=== PATIENT | female | born 1990 | race African-American/Black ===

== ENCOUNTER 2019-05-28 18:43 | Inpatient (IN) | payer OTHER ==
[2019-05-28] MEDS ORDERED: ELECTROLYTE-148 SOLN 500 ML IV ONE ×2 (19:00→19:30)
[2019-05-28 19:50] LABS: BASO % 0.4 % (0-2.0); EOS % 0.6 % (0-4.5); HEMATOCRIT 33.2 % (32.4-45.2); HEMOGLOBIN 10.7 GM/dL (10.7-15.3); LYMPH % 17.1 % (8-40); MCHC 32.3 g/dl (32.0-36.0); MEAN CELL VOLUME 86.9 fl (80-96); MEAN PLT VOLUME 9.7 fl (7.5-11.1); MONO % 10.7 % (3.8-10.2); NEUT % 71.2 % (42.8-82.8); PLATELET COUNT 287 K/MM3 (134-434); RBC 3.82 M/mm3 (3.60-5.2); RDW 14.4 % (11.6-15.6); WHITE BLOOD COUNT 8.2 K/mm3 (4.0-10.0)
[2019-05-28 20:07] LABS: INR 0.89 (0.83-1.09); PROTHROMBIN TIME (PATIENT) 10.5 SEC (9.7-13.0)
[2019-05-28 20:10] LABS: ACTIVATED PTT 31.7 SECONDS (25.2-36.5)
[2019-05-28] MEDS ORDERED: SODIUM CHLORIDE 0.9% P/F 10 ML VIAL IJ ONE (20:17)
[2019-05-28] MEDS ORDERED: BUPIVACAINE HCL/PF 2.5 MG/ML - 30 ML VIAL IJ ONE (20:18)
[2019-05-28 20:20] LABS: ANION GAP 6 MMOL/L (8-16); BLOOD UREA NITROGEN 9.7 mg/dL (7-18); CALCIUM 8.3 mg/dL (8.5-10.1); CHLORIDE 105 mmol/L (98-107); CO2 22 mmol/L (21-32); CREATININE 0.6 mg/dL (0.55-1.3); GLUCOSE,RANDOM 79 mg/dL (74-106); SODIUM 134 mmol/L (136-145)
--- NOTE | 2019-05-28 20:26 | HP ---
Past Medical History - Primary Care Physician PCP:: Dov Patel - Admission Chief Complaint: 39 weeks, labor History of Present Illness: 29 yo f 39 weeks, labor, cx 4cm 80 vx -2,mi, fhr cat 1, regular contraction, PNC at [facility] , no complication History Source: Patient Limitations to Obtaining History: No Limitations - Past Medical History ...: 2 ...Para: 1 Heme/Onc: Yes: Anemia - Past Surgical History Hx Myomectomy: No Hx Transabdominal Cerclage: No - Alcohol/Substance Use Hx Alcohol Use: No History of Substance Use: reports: None - Social History History of Recent Travel: No Home Medications - Allergies Allergies/Adverse Reactions: Allergies Allergy/AdvReac Type Severity Reaction Status Date / Time shellfish derived Allergy Severe Verified 05/28/19 19:50 - Home Medications Home Medications: Ambulatory Orders Pnv,Calcium 72/Iron/Folic Acid [ Vitamin Plus Low Iron] 1 tab PO DAILY 05/28/19 Review of Systems - Review of Systems Constitutional: reports: No Symptoms Eyes: reports: No Symptoms HENT: reports: No Symptoms Neck: reports: No Symptoms Respiratory: reports: No Symptoms Gastrointestinal: reports: No Symptoms Genitourinary: reports: No Symptoms Breasts: reports: No Symptoms Reported Musculoskeletal: reports: No Symptoms Integumentary: reports: No Symptoms Neurological: reports: No Symptoms Endocrine: reports: No Symptoms Hematology/Lymphatic: reports: No Symptoms Psychiatric: reports: No Symptoms Physical Exam - Maternity Constitutional: Yes: Well Nourished, No Distress, Calm Eyes: Yes: WNL, Conjunctiva Clear, EOM Intact HENT: Yes: WNL, Atraumatic, Normocephalic Neck: Yes: WNL, Supple, Trachea Midline Cardiovascular: Yes: WNL, Regular Rate and Rhythm Breast(s): Yes: WNL - Abdominal Exam/OB Fundal Height: 38 Number of Fetuses: Single Presentation: Vertex Contractions: Yes Regularity: Regular Intensity: Mod/Strong Monitor Mode: External Heart Rate Location: [facility] Category: I Accelerations: Non-Uniform Decelerations: None - Vaginal Exam/OB Vaginal Bleediing: No Dilatation (cm): 4 Effacement (%): 80 Amniotic Membrane Status: Intact Presentation: Vertex/Position Station: -2 - Physical Exam Musculoskeletal: Yes: WNL Extremities: Yes: WNL Edema: LLE: Trace, RLE: Trace Deep Tendon Reflex Grade: Normal +2 ...Motor Strength: WNL - Labs Lab Results: CBC, BMP 05/28/19 19:30 05/28/19 19:30 Hemorrhage Risk Assessment - Risk Factors Medium Risk Factors: Yes: None High Risk Factors: Yes: None Risk Score: 1 Risk Level: Medium Risk Problem List - Problems (1) with 39 completed weeks gestation Code(s): Z3A.39 - 39 WEEKS GESTATION OF (2) Labor established Code(s): [id number] - Assessment/Plan admit, fhm pain management anticipate vaginal delivery
--- NOTE | 2019-05-28 20:42 | PN ---
Progress Note, Labor Vaginal Exam #1 Labor Exam Date: 05/28/19 Labor Exam Time: 20:30 Heart Rate (range): 140 Dilatation: 8 Effacement (%): 90 Amniotic Membrane Status: Bulging Presentation: Vertex/Position Station: -1 (AROM. Clear AF. Pt. is restless; unable to get the regional anesthesia. Strong ctx.)
[2019-05-28] MEDS ORDERED: OXYTOCIN 20 UNITS in 0.9% NS 20 UNIT/1,000 ML INFUS.BAG IV ONE (20:48)
[2019-05-28] MEDS ORDERED: LIDOCAINE HCL 1% PRESERVATIVE FREE - 30ML VIAL ONE (20:49)
--- NOTE | 2019-05-28 21:51 | CONSULT ---
Past Medical History, Laborist - Admission Chief Complaint: Labor. R/O malpresentation. History of Present Illness: Admitted in active labor. , EDC 12.28.19. 39 wks 4 d. 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 Cardio/Vascular: Denies/None Pulmonary: Denies/None Gastrointestinal: Denies/None Hepatobiliary: Denies/None Renal/: Denies/None Reproductive: Denies/None ...: 2 ...Para: 1 ...EDC by Dates: 05/31/19 Heme/Onc: Denies/None Infectious Disease: Denies/None Psych: Denies/None Musculoskeletal: Denies/None Rheumatology: Denies/None ENT: Denies/None Endocrine: Denies/None Dermatology: Denies/None - Past Surgical History Past Surgical History: Yes: None - Alcohol/Substance Use Hx Alcohol Use: No History of Substance Use: reports: None - Social History Usual Living Arrangement: With Significant Other History of Recent Travel: No Review of Systems - Review of Systems Constitutional: reports: No Symptoms Eyes: reports: No Symptoms HENT: reports: No Symptoms Neck: reports: No Symptoms Cardiovascular: reports: No Symptoms Respiratory: reports: No Symptoms Gastrointestinal: reports: No Symptoms, Abdominal Pain Genitourinary: reports: No Symptoms Breasts: reports: No Symptoms Reported Musculoskeletal: reports: No Symptoms, Muscle Weakness Integumentary: reports: No Symptoms Neurological: reports: No Symptoms Endocrine: reports: No Symptoms Hematology/Lymphatic: reports: No Symptoms Psychiatric: reports: No Symptoms Pain Intensity: 8 Physical Exam - Maternity Vital Signs: Vital Signs Temperature 98.6 F 05/28/19 20:00 Pulse Rate 73 05/28/19 20:00 Respiratory Rate 18 05/28/19 20:00 Blood Pressure 128/81 05/28/19 20:00 O2 Sat by Pulse Oximetry (%) Constitutional: Yes: Well Nourished, No Distress, Calm Eyes: Yes: WNL, Conjunctiva Clear, EOM Intact HENT: Yes: WNL, Atraumatic, Normocephalic Neck: Yes: WNL, Supple, Trachea Midline Cardiovascular: Yes: WNL, Regular Rate and Rhythm Breast(s): Yes: WNL - Abdominal Exam/OB Fundal Height: 40 Number of Fetuses: Single Presentation: Vertex Contractions: Yes Regularity: Regular Intensity: Strong Monitor Mode: External Heart Rate Location: [facility] Category: I Accelerations: Uniform Decelerations: None - Vaginal Exam/OB Vaginal Bleediing: No Speculum Exam: No Dilatation (cm): 7-8 Effacement (%): 90 Amniotic Membrane Status: Intact Presentation: Vertex/Position Station: -1 - Physical Exam Musculoskeletal: Yes: WNL Extremities: Yes: WNL Integumentary: Yes: WNL ...Motor Strength: WNL Psychiatric: Yes: WNL - Labs Lab Results: CBC, BMP 05/28/19 19:30 05/28/19 19:30 Problem List - Problems (1) Exceptionally large baby Code(s): P08.0 - EXCEPTIONALLY LARGE BABY (2) Labor established Code(s): [id number] - (3) with 39 completed weeks gestation Code(s): Z3A.39 - 39 WEEKS GESTATION OF Assessment/Plan At term, in labor Multip. Suspected macrosomia - doubt CPD. EFW: 8 1/2 lbs, poss 9 lbs. Expecting NVD, low/moderate risk for shoulder dystocia. Allow labor to continue Regional anesthesia, AROM will help. All discussed.
--- NOTE | 2019-05-28 22:00 | PN ---
Progress Note, Labor Vaginal Exam #2 Labor Exam Date: 05/28/19 Labor Exam Time: 21:05 Heart Rate (range): 142 Dilatation: 10 Effacement (%): 100 Amniotic Membrane Status: Ruptured Presentation: Vertex/Position Station: 0 (Pushing. Not in control. Will work with her.)
--- NOTE | 2019-05-28 22:05 | PN ---
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 - 1 Minute Total Score: 9 5 Minutes Total Score: 9 Remarks - Remarks Remarks: NVSD, no complications. Delayed cord clamping; divided by FOB. Placenta intact. No tears.
[2019-05-28] MEDS ORDERED: BISACODYL 10 MG SUPP.RECT RC PRN (22:08)
[2019-05-28] MEDS ORDERED: BENZOCAINE 28 GM HEMORRHOIDAL OINTMENT TP PRN (22:08)
[2019-05-28] MEDS ORDERED: WITCH HAZEL 50% (TUCKS) 40 PAD/JAR PAD TP PRN (22:08)
[2019-05-28] MEDS ORDERED: BENZOCAINE 20% 57 GM BOTTLE TP PRN (22:08)
[2019-05-28] MEDS ORDERED: METHYLERGONOVINE MALEATE 0.2 MG/1 ML AMP IM PRN (22:08)
[2019-05-28] MEDS ORDERED: OXYTOCIN 20 UNITS in 0.9% NS 20 UNIT/1,000 ML INFUS.BAG IV SCH (22:30)
[2019-05-28] MEDS ORDERED: IBUPROFEN 600 MG TABLET (FP) PO ONE (22:59)
[2019-05-28] MEDS: IBUPROFEN 600 MG TABLET (FP) PO PRN (23:00)
[2019-05-28 23:35] VITALS: BMI 24.3
[2019-05-29] MEDS: IBUPROFEN 600 MG TABLET (FP) PO PRN (03:29)
[2019-05-29] MEDS: ACETAMINOPHEN 325 MG TABLET (FP) PO PRN (03:29)
[2019-05-29 07:23] LABS: COCAINE, UR NEGATIVE ng/ml (CUTOFF=300); METHADONE, UR NEGATIVE ng/ml (CUTOFF=300); OPIATES, URI NEGATIVE ng/ml (CUTOFF=300); PHENCYCLIDINE,URINE NEGATIVE ng/ml (CUTOFF=25); URINE AMPHETAMINES NEGATIVE ng/ml (CUTOFF=500); URINE BARBITURATES NEGATIVE ng/ml (CUTOFF=200); URINE BENZODIAZEPINES NEGATIVE ng/ml (CUTOFF=200)
[2019-05-29 07:56] LABS: BASO % 0.3 % (0-2.0); EOS % 0.3 % (0-4.5); HEMATOCRIT 30.6 % (32.4-45.2); HEMOGLOBIN 9.7 GM/dL (10.7-15.3); LYMPH % 10.9 % (8-40); MCH 27.6 pg (25.7-33.7); MCHC 31.8 g/dl (32.0-36.0); MEAN CELL VOLUME 86.8 fl (80-96); MEAN PLT VOLUME 9.6 fl (7.5-11.1); MONO % 9.7 % (3.8-10.2); NEUT % 78.8 % (42.8-82.8); PLATELET COUNT 247 K/MM3 (134-434); RBC 3.53 M/mm3 (3.60-5.2)
--- NOTE | 2019-05-29 17:38 | PN ---
Progress Note (short form) - Note Progress Note: ppd 1 doing well , no c/o , no excess vaginal bleeding CBC, BMP 05/29/19 07:15 05/28/19 19:30 Last Vital Signs Temp Pulse Resp BP Pulse Ox 98.3 F 72 18 115/64 05/29/19 13:00 05/29/19 13:00 05/29/19 13:00 05/29/19 13:00 abdomen soft, uterus firm, non tender lochia mild no calf tenderness plan ambulate , for d/c home in am Problem List - Problems (1) with 39 completed weeks gestation Code(s): Z3A.39 - 39 WEEKS GESTATION OF (2) Labor established Code(s): [id number] -
[2019-05-29 19:50] VITALS: PULSE 80
[2019-05-29] MEDS ORDERED: SENNOSIDES/DOCUSATE COMBO (SENNA PLUS) TABLET (UD) PO PRN (22:00)
--- NOTE | 2019-05-30 07:35 | DS ---
Physical Exam-CHIEF STEWARD/STEWARDESS Vital Signs: Vital Signs Temperature 98.3 F 05/29/19 19:50 Pulse Rate 80 05/29/19 19:50 Respiratory Rate 20 05/29/19 19:50 Blood Pressure 109/60 05/29/19 19:50 O2 Sat by Pulse Oximetry (%) Constitutional: Yes: Well Nourished, No Distress, Calm Eyes: Yes: WNL, Conjunctiva Clear, EOM Intact HENT: Yes: WNL, Atraumatic, Normocephalic Neck: Yes: WNL, Supple, Trachea Midline Cardiovascular: Yes: WNL, Regular Rate and Rhythm Respiratory: Yes: WNL, Regular, CTA Bilaterally Gastrointestinal: Yes: WNL ...Rectal Exam: Yes: WNL Renal/: Yes: WNL ....Post : Yes: Uterus firm, Uterus non-tender, Slight lochia rubra Breast(s): Yes: WNL Musculoskeletal: Yes: WNL Extremities: Yes: WNL Edema: No Integumentary: Yes: WNL Neurological: Yes: WNL, Alert, Oriented ...Motor Strength: WNL Psychiatric: Yes: WNL, Alert, Oriented Labs: CBC, BMP 05/29/19 07:15 05/28/19 19:30 Delivery - Delivery Vaginal Delivery: Spontaneous Type of Anesthesia: None Episiotomy/Laceration: None EBL (cc): 400 Delivery, Single - Stages of Labor Date 1st Stage Initiatied: 05/28/19 Time 1st Stage Initiated: 12:30 Date 2nd Stage Initiated: 05/28/19 Time 2nd Stage Initiated: 20:55 Date of Delivery: 05/28/19 Time of Delivery: 21:11 Time Placenta Delivered: 21:15 Placenta: Yes: Spontaneous, Normal Configuration - 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 Gender: Male Weight: 8 lb 2 oz Position: Right, OA Total Hours ROM (Hrs/Mins): 33MIN - 1 Minute Total Score: 9 5 Minutes Total Score: 9 - Feeding Plan Initial Plan: Elected not to breastfeed exclusively throughout hospitalization Discharge Summary Reason For Visit: LABOR Current Active Problems Exceptionally large baby (Acute) Labor established (Acute) with 39 completed weeks gestation (Acute) Procedures: Principal: Other Procedures: epidural anesthesia Hospital Course: no complication Health Concerns: none Plan of Treatment: follow up 4 weeks in [facility] care for Condition: Good - Instructions Diet, Activity, Other Instructions: regular diet, no intercourse , follow up [facility] care 4 weeks, if fever, pain, heavy vaginal bleeding call MD Referrals: Dov Patel MD [Staff Physician] - Disposition: HOME - Home Medications Comprehensive Discharge Medication List: Ambulatory Orders Pnv,Calcium 72/Iron/Folic Acid [ Vitamin Plus Low Iron] 1 tab PO DAILY 05/28/19 Ibuprofen [Motrin -] 600 mg PO TID #21 tablet 05/29/19
[2019-05-30] MEDS: ACETAMINOPHEN 325 MG TABLET (FP) PO PRN (07:42)
[2019-05-30] MEDS: IBUPROFEN 600 MG TABLET (FP) PO PRN (07:42)
[2019-05-30 11:18] VITALS: BP 108/66; TEMP 98
== END 2019-05-30 13:30 | disposition home or self-care (01) | DRG 560 ==
LOC: JLDR 18:43 → J3W 05-29 00:59
PROVIDERS: ADMIT Obstetrics & Gynecology; ATTEND Obstetrics & Gynecology
PROC: 10E0XZZ Delivery of Products of Conception, External Approach (ICD-10-PCS; principal; 2019-05-28)
DX: O36.63X0 Maternal care for excessive fetal growth, third trimester, not applicable or unspecified (principal); Z3A.39 39 weeks gestation of pregnancy; Z37.0 Single live birth
CPT/HCPCS: 36415; 59409; 80048; 80307; 84132; 85025; 85610; 85730; 86593; 86850; 86900; 86901; 87389